=== PATIENT | female | born 1975 | race American Indian/Alaskan Native ===

== ENCOUNTER 2017-12-04 15:20 | Emergency (ER) | payer OTHER ==
[2017-12-04] MEDS ORDERED: APRESOLINE IV ONE (15:51)
[2017-12-04] MEDS ORDERED: CATAPRES PO ONE (16:51)
[2017-12-04 17:51] LABS: Basophils # (Auto) 0.1 K/mm3 (0.0-0.1); Basophils % (Auto) 1.3 % (0.0-1.8); Eosinophils # (Auto) 0.3 K/mm3 (0.0-0.4); Eosinophils % (Auto) 5.2 % (0.0-4.3); Hematocrit 41.3 % (30.3-42.9); Hemoglobin 14.1 gm/dl (10.1-14.3); Lymphocytes % (Auto) 33.2 % (13.4-35.0); Mean Corpuscular HGB Conc 34 % (30-34); Mean Corpuscular Hemoglobin 28 pg (28-32); Mean Corpuscular Volume 82 fl (79-97); Monocytes # (Auto) 0.6 K/mm3 (0.0-0.8); Monocytes % (Auto) 9.3 % (0.0-7.3); Platelet Count 315 K/mm3 (140-440); Red Blood Count 5.06 M/mm3 (3.65-5.03); Red Cell Distribution Width 14.8 % (13.2-15.2)
--- NOTE | 2017-12-04 17:57 | Emergency Department Report ---
ED General Adult HPI - General Chief complaint: High BP Stated complaint: HYPERTENSION Time Seen by Provider: 12/04/17 16:47 Source: patient Mode of arrival: Ambulatory Limitations: No Limitations - History of Present Illness Initial comments: 42-year-old female the past medical history of hypertension and noncompliance of medication 1 month since the hospital with elevated BP. Patient states that both eyes were red and her sister suggested that her BP might be elevated. When they checked it at [facility] Systolic was above 200 with diastolic over 100. Patient denies headache, blurry vision, chest pain, shortness of breath, nausea, vomiting, abdominal pain, or leg edema. She has been Noncompliant with lisinopril 20 mg 1 month. She typically receives refills at [facility] or by going to the [facility] [place]. Severity scale (0 -10): 0 - Related Data Previous Rx's Medication Instructions Recorded Last Taken Type Acetaminophen/Codeine [Tylenol #3] 1 tab PO Q6H PRN #15 tab 02/28/15 Unknown Rx Verapamil [Calan] 80 mg PO TID #90 tablet 02/28/15 Unknown Rx Lisinopril [Zestril TAB] 20 mg PO QDAY #30 tablet 12/04/17 Unknown Rx amLODIPine [Norvasc] 5 mg PO DAILY #30 tab 12/04/17 Unknown Rx Allergies Allergy/AdvReac Type Severity Reaction Status Date / Time No Known Allergies Allergy Unverified 02/28/15 15:12 ED Review of Systems ROS: Stated complaint: HYPERTENSION Other details as noted in HPI Comment: All other systems reviewed and negative ED Past Medical Hx - Past Medical History Hx Hypertension: Yes - Social History Smoking Status: Never Smoker Substance Use Type: None - Medications Home Medications: Home Medications Medication Instructions Recorded Confirmed Last Taken Type Acetaminophen/Codeine [Tylenol #3] 1 tab PO Q6H PRN #15 tab 02/28/15 Unknown Rx Verapamil [Calan] 80 mg PO TID #90 tablet 02/28/15 Unknown Rx Lisinopril [Zestril TAB] 20 mg PO QDAY #30 tablet 12/04/17 Unknown Rx amLODIPine [Norvasc] 5 mg PO DAILY #30 tab 12/04/17 Unknown Rx ED Physical Exam - General Limitations: No Limitations - Other Other exam information: General: No limitations, patient is alert in no acute distress Head exam: Atraumatic, normocephalic Eyes exam: Normal appearance, pupils equal reactive to light, extraocular movements intact ENT: Moist mucous membrane, normal oropharynx Neck exam: Normal inspection, full range of motion, no meningismus nontender Respiratory exam: Clear to auscultation bilateral, no wheezes, rales, crackles Cardiovascular: Normal rate and rhythm, normal heart sounds Abdomen: Soft, nondistended, and nontender, with normal bowel sounds, no rebound, or guarding Extremity: Full range of motion normal inspection no deformity Back: Normal Inspection, full range of motion, no tenderness Neurologic: Alert, oriented x3, cranial nerves intact, no motor or sensory deficit Psychiatric: normal affect, normal mood Skin: Warm, dry, intact ED Course Vital Signs 12/04/17 12/04/17 12/04/17 15:45 16:41 16:50 Temperature 98.3 F 98.2 F Pulse Rate 86 79 Respiratory 21 18 Rate Blood Pressure 226/156 Blood Pressure 212/112 [Left] O2 Sat by Pulse 100 99 Oximetry 12/04/17 12/04/17 12/04/17 17:00 17:22 17:32 Temperature Pulse Rate 72 72 79 Respiratory 23 28 H Rate Blood Pressure 234/128 212/112 243/131 Blood Pressure [Left] O2 Sat by Pulse Oximetry 12/04/17 12/04/17 12/04/17 18:00 18:30 19:00 Temperature Pulse Rate 77 76 77 Respiratory 14 18 20 Rate Blood Pressure 236/141 184/120 174/110 Blood Pressure [Left] O2 Sat by Pulse Oximetry 12/04/17 12/04/17 12/04/17 19:06 20:30 20:34 Temperature Pulse Rate 78 75 Respiratory 18 10 L Rate Blood Pressure 180/132 180/132 Blood Pressure [Left] O2 Sat by Pulse 99 Oximetry 12/04/17 12/04/17 12/04/17 21:00 21:19 21:30 Temperature Pulse Rate 77 79 75 Respiratory 19 21 Rate Blood Pressure 173/116 171/118 165/109 Blood Pressure [Left] O2 Sat by Pulse Oximetry ED Medical Decision Making - Lab Data Result diagrams: 12/04/17 17:37 12/04/17 17:37 Lab Results 12/04/17 12/04/17 12/04/17 Range/Units 17:37 17:37 17:37 WBC 6.0 (4.5-11.0) K/mm3 RBC 5.06 H (3.65-5.03) M/mm3 Hgb 14.1 (10.1-14.3) gm/dl Hct 41.3 (30.3-42.9) % MCV 82 (79-97) fl MCH 28 (28-32) pg MCHC 34 (30-34) % RDW 14.8 (13.2-15.2) % Plt Count 315 (140-440) K/mm3 Lymph % (Auto) 33.2 (13.4-35.0) % [place] % (Auto) 9.3 H (0.0-7.3) % Eos % (Auto) 5.2 H (0.0-4.3) % Baso % (Auto) 1.3 (0.0-1.8) % Lymph # 2.0 (1.2-5.4) K/mm3 [place] # 0.6 (0.0-0.8) K/mm3 Eos # 0.3 (0.0-0.4) K/mm3 Baso # 0.1 (0.0-0.1) K/mm3 Seg Neutrophils % 51.0 (40.0-70.0) % Seg Neutrophils # 3.1 (1.8-7.7) K/mm3 Sodium 138 (137-145) mmol/L Potassium 3.7 (3.6-5.0) mmol/L Chloride 98.8 (98-107) mmol/L Carbon Dioxide 29 (22-30) mmol/L Anion Gap 14 mmol/L BUN 5 L (7-17) mg/dL Creatinine 0.8 (0.7-1.2) mg/dL Estimated GFR > 60 ml/min BUN/Creatinine Ratio 6 % Glucose 88 (65-100) mg/dL Calcium 9.6 (8.4-10.2) mg/dL Total Creatine Kinase 270 H (30-135) units/L CK-MB (CK-2) 2.2 (0.0-4.0) ng/mL CK-MB (CK-2) Rel Index 0.8 (0-4) Troponin T < 0.010 (0.00-0.029) ng/mL - EKG Data -: EKG Interpreted by Me (lvh) EKG shows normal: sinus rhythm, axis (qrs 61), QRS complexes (qrsd 83), ST-T waves (borderline t abnl, diffuse leads) Rate: normal (72) - Medical Decision Making Asymptomatic hypertension No signs of hypertensive emergency or end organ damage BP improving with significant decrease with ED treatment Patient states she only takes lisinopril 20 mg however, I doubt this is enough to control her blood pressure given how high it is. Patient states that she doesn't follow up on a regular basis to have her blood pressure rechecked or medication adjusted. Patient will be restarted on lisinopril 20 mg in addition to Norvasc 5mg I stressed the importance of outpatient follow-up for optimal blood pressure management - Differential Diagnosis hypertensive emergency/urgency, asymptomatic hypertension, noncompliance Critical Care Time: No Critical care attestation.: If time is entered above; I have spent that time in minutes in the direct care of this critically ill patient, excluding procedure time. ED Disposition Clinical Impression: Uncontrolled hypertension, Noncompliance with medication regimen Disposition: TO HOME OR SELFCARE Is pt being admited?: No Does the pt Need Aspirin: No Condition: Stable Instructions: Hypertension (ED), How to Take a Blood Pressure (ED) Additional Instructions: Take the medication as prescribed. Follow up with your doctor or doctor/clinic provided. Return if symptoms worsen as indicated by your discharge instructions Prescriptions: amLODIPine [Norvasc] 5 mg PO DAILY #30 tab Lisinopril [Zestril TAB] 20 mg PO QDAY #30 tablet Referrals: MYNOR YANEZ MD [Primary Care Provider] - 3-5 Days [facility] [Provider Group] - 3-5 Days PREMA OROSCO MD [Staff Physician] - 3-5 Days Time of Disposition: 22:25
[2017-12-04 18:06] LABS: BUN/Creatinine Ratio 6; Blood Urea Nitrogen 5 mg/dL (7-17); Calcium 9.6 mg/dL (8.4-10.2); Creatine Kinase MB 2.2 ng/mL (0.0-4.0); Hemolysis Index 0
[2017-12-04] MEDS ORDERED: NORMODYNE IV ONE ×2 (19:02→21:02)
[2017-12-04] MEDS ORDERED: ZESTRIL PO ONE (22:23)
[2017-12-04 22:43] VITALS: BP 160/111
== END 2017-12-04 22:43 | disposition home or self-care (01) ==
LOC: ED 15:20
DX: I10 Essential (primary) hypertension (principal); Z91.19 Patient's noncompliance with other medical treatment and regimen
CPT/HCPCS: 36415; 80048; 82550; 82553; 84484; 85025; 93005; 93010; 96374; 96376; 99283